=== PATIENT | male | born 1970 | race Caucasian/White ===

== ENCOUNTER 2022-02-20 08:09 | Observation (INO) ==
[2022-02-20] MEDS ORDERED: Naloxone 0.4 MG/ML INJ IVP PRN ×2 (09:35→16:32)
[2022-02-20] MEDS ORDERED: Ketorolac 30 MG/ML VIAL IVP PRN (09:35)
[2022-02-20] MEDS ORDERED: *HR* HYDROmorphone (PF) 1 MG/ML SYRINGE IVP PRN ×2 (09:35→16:32)
[2022-02-20] MEDS ORDERED: Ondansetron 4 MG/2 ML VIAL IVP PRN ×2 (09:35→16:32)
[2022-02-20] MEDS ORDERED: 0.9 % Sodium Chloride 1,000 ML IVC SCH ×2 (09:45→16:32)
[2022-02-20] MEDS ORDERED: levoFLOXacin 500 MG/100 ML 500 MG/100 ML BAG IVPB SCH (09:45)
[2022-02-20 10:04] LABS: Hematocrit 46.7 % (37.5-50.1); Mean Corpuscular HGB Conc 34.3 g/dL (31.6-35.5); Mean Corpuscular Hemoglobin 30.4 pg (28.0-33.3); Mean Corpuscular Volume 88.6 fL (83.0-100.0); Mean Platelet Volume 9.2 fL (9.4-12.4); Platelet Count 205 K/mcL (140-400); Red Blood Count 5.27 M/mcL (4.19-5.50); Red Cell Distribution Width 12.9 % (11.5-14.5); White Blood Count 12.5 K/mcL (4.3-11.1)
[2022-02-20 10:24] LABS: Calcium 8.6 mg/dL (8.6-10.3); Potassium 3.7 mEq/L (3.5-5.1)
[2022-02-20] MEDS ORDERED: *HR* FentaNYL (PF) 100 MCG/2 ML VIAL IVP PRN ×2 (11:51→16:32)
[2022-02-20] MEDS ORDERED: hydrALAZINE 10 MG TABLET PO PRN ×2 (11:57→16:32)
[2022-02-20] MEDS ORDERED: Acetaminophen IV 1,000 MG/100 ML BAG IVPB SCH (12:00)
[2022-02-20] MEDS ORDERED: *HR* Midazolam HCl 2 MG/2 ML VIAL ONE (13:15)
[2022-02-20] MEDS ORDERED: *HR* FentaNYL (PF) 100 MCG/2 ML VIAL ONE (13:15)
[2022-02-20] MEDS ORDERED: Lidocaine -MPF 2% 2 ML VIAL ONE (13:16)
[2022-02-20] MEDS ORDERED: Ondansetron 4 MG/2 ML VIAL ONE (13:16)
[2022-02-20] MEDS ORDERED: *HR* Propofol 200 MG/20 ML VIAL IVP ONE (13:16)
[2022-02-20] MEDS ORDERED: Famotidine 20 MG/2 ML VIAL IVP ONE (13:42)
[2022-02-20] MEDS ORDERED: Acetaminophen IV 1,000 MG/100 ML BAG IVPB ONE (13:42)
[2022-02-20] MEDS ORDERED: Iopamidol - 300 50 ML VIAL ONE (14:18)
[2022-02-20] MEDS ORDERED: EPHEDrine sulfate 50 MG/10 ML VIAL IVP ONE (14:49)
[2022-02-20] MEDS ORDERED: *HR* Belladonna Alkaloids/Opium 30 MG RECTAL SUPPOSITORY RC PRN (16:32)
[2022-02-20] MEDS ORDERED: Nicotine 21 MG PATCH.TD24 TD SCH (16:32)
[2022-02-20] MEDS: Acetaminophen IV 1,000 MG/100 ML BAG IVPB SCH (19:55)
[2022-02-21 02:05] LABS: Calcium 8.5 mg/dL (8.6-10.3); Potassium 4.6 mEq/L (3.5-5.1)
[2022-02-21] MEDS: Acetaminophen IV 1,000 MG/100 ML BAG IVPB SCH (02:36)
[2022-02-21 07:32] VITALS: BP 148/96; PULSE 64; TEMP 97.8; O2SAT 94
[2022-02-21] MEDS ORDERED: levoFLOXacin 500 MG/100 ML 500 MG/100 ML BAG IVPB SCH (09:00)
== END 2022-02-21 10:40 | disposition home or self-care (01) ==
LOC: 3ANU
PROVIDERS: ADMIT Urology; ATTEND Urology